=== PATIENT | female | born 1995 | race Caucasian/White ===

== ENCOUNTER 2018-12-15 06:00 | Inpatient (IN) ==
[2018-12-15] MEDS ORDERED: miSOPROStol 25 MCG TABLET PO PRN (06:18)
[2018-12-15] MEDS ORDERED: Naloxone 0.4 MG/ML INJ IVP PRN (06:18)
[2018-12-15] MEDS ORDERED: *HR* Nalbuphine 10 MG/ML AMPUL IVP PRN (06:18)
[2018-12-15] MEDS ORDERED: Metoclopramide 10 MG/2 ML VIAL IVP PRN (06:18)
[2018-12-15] MEDS ORDERED: Famotidine 20 MG/2 ML VIAL IVP PRN (06:18)
[2018-12-15] MEDS ORDERED: Ringers Solution, Lactated 1,000 ML IVC SCH (06:30)
[2018-12-15 06:52] LABS: Amphetamine Screen,Urine Negative ng/mL (Cutoff=1000); Barbiturate Screen,Urine Negative ng/mL (Cutoff=200); Basophils % 0.2 %; Eosinophils # 0.2 K/mcL (0.0-0.6); Eosinophils % 1.3 %; Hematocrit 35.9 % (35.3-44.9); Hemoglobin 12.1 g/dL (11.5-15.4); Immature Granulocytes % 0.4 % (0-4); Lymphocytes # 2.8 K/mcL (0.6-4.6); Lymphocytes % 21.6 %; Mean Corpuscular HGB Conc 33.7 g/dL (31.6-35.5); Mean Corpuscular Volume 92.1 fL (83.0-100.0); Monocytes % 7.8 %; Neutrophils # 8.8 K/mcL (1.6-8.9); Platelet Count 311 K/mcL (140-400); Red Cell Distribution Width 12.6 % (11.5-14.5); Segmented Neutrophils % 68.7 %; White Blood Count 12.8 K/mcL (4.3-11.1)
[2018-12-15 06:53] LABS: Benzodiazepines Screen,Urine Negative ng/mL (Cutoff=300); Cannabinoid Screen,Urine Negative ng/mL (Cutoff = 50); Cocaine Screen,Urine Negative ng/mL (Cutoff= 300); Opiate Screen,Urine Negative ng/mL (Cutoff=300); Phencyclidine Screen,Urine Negative ng/mL (Cutoff=25)
--- NOTE | 2018-12-15 08:14 | Anesthesia Evaluation PreOp ---
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 Other Medical History: Denies Any Significant HX Anesthesia History: No Prior Anesthetic Complications, Past Anesthesia (denies) Alcohol Use: none Drug use: none Medications and Allergies Vits96/Iron Fum/Folic [ Tablet] 1 each PO DAILY 12/15/18 [History] Allergy/AdvReac Type Severity Reaction Status Date / Time No Known Allergies Allergy Verified 12/15/18 06:26 Anesthesia Results - Labs 12/15/18 06:34 Anesthesia Exam - HEENT Pupil (Motor): Pupils equal Mallampati: II Teeth: Normal Oral Opening: Greater than 3 - AUTOMATION [employer] CONTROLS INSTRUCTOR LOC: Oriented [employer]OMATION [employer]OLS INSTRUCTOR Motor: Normal RUE, Normal LUE, Normal RLE, Normal LLE, Normal Face [employer]OLS INSTRUCTOR Sensory: Normal: RUE, LUE, RLE, LLE, Face - Cardiac Rhythm: Regular Murmur: None - Pulmonary Breath Sounds: bilateral Clear Respiratory Effort: Symmetrical Anesthesia Assess/Plan ASA Score: 2 Level of consciousness: Cooperative, Oriented Anesthetic Plan: General, Spinal, Epidural Monitoring Plan: Standard Monitors Recovery Plan: PACU
[2018-12-15] MEDS ORDERED: Epidural Premix (fent/bupiv) 110 ML EP SCH (08:15)
[2018-12-15] MEDS ORDERED: Penicillin G Potassium 5,000,000 UNIT in 0.9 % Sodium Chloride Mini Bag 100 ML IVPB ONE (12:39)
--- NOTE | 2018-12-15 12:39 | OB/GYN History & Physical ---
Date of Encounter: 12/15/18 Time of Encounter: 12:33 Assessment and Plan (1) 40 weeks gestation of Current visit: Yes Status: Acute admitted for IOL (2) History of group B Streptococcus (GBS) infection Current visit: Yes Status: Acute GBS prophylaxis History of Present Illness Chief complaint: Schedule IOL @ 40w4d HPI: Ms. Morrissey is a 23 year old female is a at 40w4d presented to labor and delivery for scheduled IOL. Patient denies any questions or concerns. Patient reports good movement with occasional contractions. Patient denies VB or LOF. Patient did have a bartholin gland drained that was positive for group B strep will treat for GBS prophylaxis. Blood type:O+ Rubella: Immune Hep B: nonreactive GBS: Positive with Bartholin's cyst culture Past Med Surg Social Fam HX - Past Medical History Source: patient Medical history: no medical history Psychiatric history: depression - Past Surgical History Surgical History: no surgical history - Social History Smoking Status: Current every day smoker Packs per day: 1/2 Smokeless Tobacco Status: No Alcohol use: none Drug use: none Occupational status: unemployed Current living situation: Home - Independent Activity Level: Independent ambulation Recent Out of Country Travel Within the Last 8 Weeks: No Exposure or Possible Exposure to Illness During Travel: No - Family History Mother Living Status: Still Living Obstetrical History - Pregnancies : 1 Para: 0 Term: 0 : 0 Ab's: 0 Livin Medications and Allergies Vits96/Iron Fum/Folic [ Tablet] 1 each PO DAILY 12/15/18 [History] Allergy/AdvReac Type Severity Reaction Status Date / Time No Known Allergies Allergy Verified 12/15/18 06:26 Review of System OB - Constitutional Constitutional ROS IM: no chills, no fever(s), no headache(s) - Cardiovascular Cardiovascular: no chest pain, no leg edema - Respiratory Respiratory: no cough, no dyspnea - Gastrointestinal Gastrointestinal: no abdominal pain, no constipation, no cramping, no heartburn, no nausea, no vomiting - Genitourinary Genitourinary: no abnormal vaginal bleeding, no dysuria, no flank pain, no urinary hesitancy, no urinary urgency, no vaginal discharge, no vaginal odor, no vaginal pruritis Exam - Constitutional Constitutional: well developed, well nourished, no acute distress, average body habitus - HEENT HEENT: Normocephaly, Mucus Membranes Moist - Neck Neck exam: full ROM, supple - Lungs Respiratory exam: CTAB - Cardiovascular Cardiovascular exam: RRR, +S1, +S2 - Abdomen Abdomen: Present: bowel sounds normal, gravid, non tender - Extremities Extremities exam: full ROM, normal capillary refill, normal inspection Deep Tendon Reflex Grade: 2+ Normal - Cervix Dilation: 2 Effacement: 80 Station: -1 - Uterus Uterus exam: Present: normal size, normal contour - Anus/Rectum Anus/Rectum: Present: normal perianal skin - Comments Comments: FHR 120 bpm moderate variability +15x15 accels no decels noted. Contractions 2.5-3 min apart. Cat. 1 tracing Results Result Diagrams: 12/15/18 06:34 Abnormal lab results WBC 12.8 K/mcL (4.3-11.1) H 12/15/18 06:34 All other labs normal. - VTE Reasons for not Prescribing Prophylaxis: Treatment not Indicated - Low risk for VTE
[2018-12-15] MEDS ORDERED: Oxytocin 20 units/ LR 1000 mL 20 UNIT/1,000 ML BAG IVC ONE (12:40)
--- NOTE | 2018-12-15 15:05 | Anesthesia Procedures ---
Date of Encounter: 12/15/18 Time of Encounter: 14:39 Procedures: Anesthesia - Epidural/Spinal Patient ID/Chart reviewed: Yes Patient examined: Yes OB Eval: Gestational age: term OB Eval: : 1 OB Eval: Contractions: Non-stressed pattern Consent Obtained: Yes Supplemental Oxygen: None/Room Air Site Prep: Aseptic Technique, Sterile prep and drape, 0.5% Chlorhexidine/Alcohol Patient position: upright Local Anesthetic: Lidocaine 1% Amount of Local Anesthetic used: 2 Touhy Needle Gauge: 18 Touhy Needle Depth (cm): 7 Catheter Depth at Skin (cm): 12 Test Dose (1.5% Lido + Epi): Volume given (mls): 3 Test Dose Result: Negative Loading Dose: Other: 10ml from solution Loading Dose Administered: Thru Catheter Infusion Med: 0.125% Bupivacaine w/ 2 mcg/ml Fentanyl Infusion Rate (mls/hr): [address]: Tegaderm, Tape Interspace Used: L3-L4 Loss of Resistance (YAMINI): Yes (saline) Blood: No CSF: Yes (25g purposful) Paresthesia: No Procedure: vss though out procedure, FHR per team.
[2018-12-15] MEDS ORDERED: Penicillin G Potassium 2,500,000 UNIT in 0.9 % Sodium Chloride 100 ML IVPB SCH (17:00)
[2018-12-15] MEDS ORDERED: Ondansetron 4 MG/2 ML VIAL IM ONE (17:26)
--- NOTE | 2018-12-15 21:51 | OB/GYN Procedure Note ---
Delivery - Delivery Date: 12/15/18 Provider: Kofi Gupta Intrapartum events: none Delivery induction: AROM, oxytocin, ortiz, misoprostol Delivery augmentation: rupture of membranes Delivery monitor: external FHT, external uterine Anesthesia: epidural Quantitated Blood Loss: 300 - Infant (s) Infant A Infant Delivery Date: 12/15/18 Infant Delivery Time: 21:31 Presentation: vertex Position: OA Gender: Female Viability: Viable Pounds: 6 Ounces: 2 Weight Gram: 2.78 kg at 1 minute: 8 at 5 mins: 9 Shoulder Dystocia: not encountered Specimens collected: cord blood Placenta: spontaneous Cord: nuchal cord, 3 umbilical vessels - Repair Episiotomy: none Laceration Description: Perineal - 2nd Degree - Complications Delivery complications: none Delivery comments: This patient progressed to complete and pushing. She had a spontaneous vaginal delivery of a female infant over an intact perineum. Assessment perineum easily. There was a tight nuchal cord which was delivered through. The rest the infant delivered without difficulty. cried immediately upon delivery. The cord was clamped and cut after 1 minute. Infant was passed to nursing in attendance. Cord bloods obtained. The placenta was then delivered spontaneously intact. There are no cervical, vaginal, periurethral lacerations noted. There was a second-degree perineal laceration which was noted and repaired with 3-0 Vicryl suture. Patient delivered a female weight was 6 lbs. 2 oz. Apgars are 2780 g. Estimated blood loss 30 mL. - Disposition Mom disposition: stable in LDR disposition: stable in LDR
[2018-12-16] MEDS ORDERED: Oxytocin 20 units/ LR 1000 mL 20 UNIT/1,000 ML BAG IVC ONE (00:02)
[2018-12-16] MEDS ORDERED: Measles/Mumps/Rubella Vacc 0.5 ML VIAL SQ PRN (00:26)
[2018-12-16] MEDS ORDERED: Oxytocin 20 units/ LR 1000 mL 20 UNIT/1,000 ML BAG IVC SCH (00:26)
[2018-12-16] MEDS ORDERED: Acetaminophen 325 MG TABLET PO PRN (00:26)
[2018-12-16 07:29] LABS: Basophils % 0.2 %; Eosinophils # 0.2 K/mcL (0.0-0.6); Eosinophils % 1.2 %; Hematocrit 31.9 % (35.3-44.9); Immature Granulocytes % 0.4 % (0-4); Lymphocytes % 14.1 %; Mean Corpuscular HGB Conc 32.9 g/dL (31.6-35.5); Mean Corpuscular Hemoglobin 30.9 pg (28.0-33.3); Mean Corpuscular Volume 93.8 fL (83.0-100.0); Mean Platelet Volume 10.4 fL (9.4-12.4); Monocytes # 1.1 K/mcL (0.0-1.3); Monocytes % 7.5 %; Neutrophils # 10.8 K/mcL (1.6-8.9); Platelet Count 243 K/mcL (140-400); Red Cell Distribution Width 12.5 % (11.5-14.5); Segmented Neutrophils % 76.6 %
[2018-12-16 07:42] LABS: Hemoglobin 10.5 g/dL (11.5-15.4)
[2018-12-16] MEDS ORDERED: Prenatal Vit/FA 1 EACH TABLET PO SCH (09:00)
--- NOTE | 2018-12-16 10:37 | Discharge Summary ---
Date of Encounter: 12/16/18 Time of Encounter: 10:34 - Discharge Diagnosis (1) Vaginal delivery Priority: Primary Status: Acute Comments: Feeling well Tolerating regular diet Pain well-controlled with by mouth pain meds Ambulating independently Voiding independently Lochia light Passing flatus, no BM yet Vital signs stable Discharge home today (2) Acute blood loss anemia Priority: Secondary Status: Acute Comments: Continue iron supplementation for 2 weeks - Discharge Medications Prescriptions: New Docusate [Colace] 100 mg PO BID #30 capsule Ferrous Sulfate 325 mg PO DAILY #14 tablet Ibuprofen [Motrin] 600 mg PO Q6HR PRN #30 tab PRN Reason: Pain Acetaminophen [Tylenol] 650 mg PO Q6HR PRN tablet PRN Reason: Mild Pain Continued Vits96/Iron Fum/Folic [ Tablet] 1 each PO DAILY Home Medications: Vits96/Iron Fum/Folic [ Tablet] 1 each PO DAILY 12/15/18 [History] Acetaminophen [Tylenol] 650 mg PO Q6HR PRN tablet 12/16/18 [Rx] Docusate [Colace] 100 mg PO BID #30 capsule 12/16/18 [Rx] Ferrous Sulfate 325 mg PO DAILY #14 tablet 12/16/18 [Rx] Ibuprofen [Motrin] 600 mg PO Q6HR PRN #30 tab 12/16/18 [Rx] Allergies/Adverse Reactions: Allergy/AdvReac Type Severity Reaction Status Date / Time No Known Allergies Allergy Verified 12/15/18 06:26 Data Procedures and tests throughout hospitalization: Laboratory Tests 12/15/18 12/15/18 12/16/18 06:34 06:34 06:39 WBC 12.8 H 14.0 H RBC 3.90 3.40 L Hgb 12.1 10.5 L D Hct 35.9 31.9 L MCV 92.1 93.8 MCH 31.0 30.9 MCHC 33.7 32.9 RDW 12.6 12.5 Plt Count 311 243 MPV 10.0 10.4 Immature Gran % 0.4 0.4 Seg Neutrophils % 68.7 76.6 Lymphocytes % 21.6 14.1 Monocytes % 7.8 7.5 Eosinophils % 1.3 1.2 Basophils % 0.2 0.2 Neutrophils # 8.8 10.8 H Lymphocytes # 2.8 2.0 Monocytes # 1.0 1.1 Eosinophils # 0.2 0.2 Basophils # 0.0 0.0 Urine Opiates Screen Negative Ur Buprenorphine Scrn Negative Ur Barbiturates Screen Negative Ur Phencyclidine Scrn Negative Ur Amphetamines Screen Negative U Benzodiazepines Scrn Negative Urine Cocaine Screen Negative U Marijuana (THC) Screen Negative Ur Drug Screen Interp See Below Labs on day of discharge: Labs from last 24 hours 12/16/18 06:39 WBC 14.0 H RBC 3.40 L Hgb 10.5 L D Hct 31.9 L MCV 93.8 MCH 30.9 MCHC 32.9 RDW 12.5 Plt Count 243 MPV 10.4 Immature Gran % 0.4 Seg Neutrophils % 76.6 Lymphocytes % 14.1 Monocytes % 7.5 Eosinophils % 1.2 Basophils % 0.2 Neutrophils # 10.8 H Lymphocytes # 2.0 Monocytes # 1.1 Eosinophils # 0.2 Basophils # 0.0 Date of admission: 12/15/18 06:14 Primary care physician: PCP NONE Consults: 12/16/18 00:26 Consult to Threshing Department Supervisor [CONS] Routine Comment: Vaginal delivery, consult needed Discharging clinician: Sharon Martin Anticipated date of discharge: 12/16/18 - Patient Status Disposition: Home, Self-Care Condition: Good Functional capacity at discharge: independent ambulation Overall status at discharge: patient is progressing back to baseline - Discharge Instructions Follow Up With: NONE,PCP [Primary Care Provider] - Kofi Gupta MD [Partnered Physician] - - Diet and Activity Activity: increase activity as tolerated Diet: regular diet Hospital Course Reason for admission: induction of labor, IUP at term Delivery: Episiotomy: none Laceration: none Other procedures: none complications: none Discharge diagnosis: IUP at term delivered baby: male Time Attestation: Total time spent providing and/or coordinating discharge services: Time Spent: Less than 30 minutes Exam - Constitutional Vitals: Temp Pulse Resp BP Pulse Ox 97.8 F 94 16 127/85 98 12/16/18 07:45 12/16/18 07:45 12/16/18 07:45 12/16/18 07:45 12/16/18 07:45 General appearance IM: A&O X 3, pleasant, answers questions appropriately - Respiratory Respiratory exam: Present: CTAB - Cardiovascular Cardiovascular exam IM: Present: RRR, +S1, +S2 - GI/Abdominal GI/Abdominal exam IM: normal bowel sounds, no peritoneal signs - Rectal Rectal exam: deferred - Uterine Tone: Firm Uterus Position: 2 Fingers Below Umbilicus, Midline - Extremities Exam Extremities exam IM: Present: normal capillary refill, normal inspection, radial pulses palpable and symmetrical - Neurological Exam Neurological exam: alert, CN II-XII intact, normal gait, oriented X3, reflexes normal, no focal deficits, strengths equal and symetr throughout - Psychiatric Additional comments: Signs and symptoms of depression discussed with patient and she verbalizes understanding of when to seek help
[2018-12-16 20:56] VITALS: BP 123/81
== END 2018-12-16 22:40 | disposition home or self-care (01) | DRG 560 ==
LOC: 1NENULAB 06:14 → 1NENUOBS 12-16 01:31
PROVIDERS: ADMIT Obstetrics & Gynecology; ATTEND Obstetrics & Gynecology

== ENCOUNTER 2021-03-06 14:38 | Inpatient (IN) ==
[~2021-03-06 14:38] MED LIST: *HR* Nalbuphine 10 MG/ML AMPUL IV PRN; Azithromycin 500 MG in 0.9 % Sodium Chloride 250 ML IVPB PRN; Famotidine 20 MG/2 ML VIAL IVP PRN; Metoclopramide 10 MG/2 ML VIAL IVP PRN; Naloxone 0.4 MG/ML INJ IVP PRN; Ondansetron 4 MG/2 ML VIAL IVP PRN
[2021-03-06] MEDS ORDERED: Ringers Solution, Lactated 1,000 ML ONE (14:43)
[2021-03-06] MEDS ORDERED: Ringers Solution, Lactated 1,000 ML IVC SCH (14:45)
[2021-03-06 15:08] LABS: Basophils % 0.3 %; Eosinophils # 0.1 K/mcL (0.0-0.6); Eosinophils % 0.7 %; Hematocrit 37.8 % (35.3-44.9); Hemoglobin 12.6 g/dL (11.5-15.4); Immature Granulocytes % 0.4 % (0-4); Lymphocytes # 2.2 K/mcL (0.6-4.6); Lymphocytes % 13.9 %; Mean Corpuscular HGB Conc 33.3 g/dL (31.6-35.5); Mean Corpuscular Volume 92.9 fL (83.0-100.0); Mean Platelet Volume 10.6 fL (9.4-12.4); Monocytes # 0.9 K/mcL (0.0-1.3); Monocytes % 5.9 %; Neutrophils # 12.4 K/mcL (1.6-8.9); Platelet Count 234 K/mcL (140-400); Red Blood Count 4.07 M/mcL (3.82-4.97); Red Cell Distribution Width 12.8 % (11.5-14.5); Segmented Neutrophils % 78.8 %; White Blood Count 15.7 K/mcL (4.3-11.1)
[2021-03-06] MEDS ORDERED: EPHEDrine 50 MG/ML VIAL IVP PRN (15:20)
[2021-03-06] MEDS ORDERED: Ropivacaine/PF 0.2% 20 ML VIAL EP ONE (15:20)
[2021-03-06] MEDS ORDERED: Ondansetron 4 MG/2 ML VIAL IVP PRN (15:20)
[2021-03-06] MEDS ORDERED: *HR* FentaNYL (PF) 100 MCG/2 ML VIAL EP ONE (15:20)
[2021-03-06] MEDS ORDERED: Naloxone 0.4 MG/ML INJ IVP PRN (15:20)
[2021-03-06 15:23] LABS: Amphetamine Screen,Urine Negative ng/mL (Cutoff=1000); Barbiturate Screen,Urine Negative ng/mL (Cutoff=200); Benzodiazepines Screen,Urine Negative ng/mL (Cutoff=200); Cannabinoid Screen,Urine Negative ng/mL (Cutoff = 50); Cocaine Screen,Urine Negative ng/mL (Cutoff= 300); Opiate Screen,Urine Negative ng/mL (Cutoff=300); Phencyclidine Screen,Urine Negative ng/mL (Cutoff=25)
[2021-03-06] MEDS ORDERED: Epidural Premix (fent/bupiv) 110 ML EP ONE (15:27)
[2021-03-06] MEDS ORDERED: Ropivacaine/PF 0.2% 20 ML VIAL ONE (15:29)
[2021-03-06] MEDS ORDERED: Epidural Premix (fent/bupiv) 110 ML EP SCH (15:30)
[2021-03-06 15:47] LABS: Influenza A PCR Negative (Negative); Influenza B PCR Negative (Negative); Resp. Syncytial Virus PCR Negative (Negative)
[2021-03-06 15:53] LABS: SARS-CoV-2 by PCR (In House) Negative (Negative)
[2021-03-06] MEDS ORDERED: Oxytocin 20 units/ LR 1000 mL 20 UNIT/1,000 ML BAG IVC ONE ×2 (18:06→18:42)
[2021-03-06] MEDS ORDERED: Measles/Mumps/Rubella Vacc 0.5 ML VIAL SQ PRN (18:42)
[2021-03-06] MEDS ORDERED: Ondansetron ODT 4 MG TAB.RAPDIS SL PRN (18:42)
[2021-03-06] MEDS ORDERED: Rho Immune Globulin 1,500 UNIT SYRINGE IM PRN (18:42)
[2021-03-06] MEDS ORDERED: Benzocaine/Menthol 56 GM AEROSOL SPRAY TP PRN (18:42)
[2021-03-06] MEDS ORDERED: Lanolin 7 G OINT...G. TP PRN (18:42)
[2021-03-06] MEDS ORDERED: Oxytocin 20 units/ LR 1000 mL 20 UNIT/1,000 ML BAG IVC SCH (18:45)
[2021-03-06] MEDS: Ibuprofen 600 MG TABLET PO SCH (22:37)
[2021-03-06] MEDS: Acetaminophen 325 MG TABLET PO SCH (22:37)
[2021-03-07 03:45] VITALS: O2SAT 98
[2021-03-07 03:57] LABS: Basophils % 0.2 %; Eosinophils # 0.2 K/mcL (0.0-0.6); Eosinophils % 1.2 %; Hematocrit 32.7 % (35.3-44.9); Immature Granulocytes % 0.4 % (0-4); Lymphocytes # 3.1 K/mcL (0.6-4.6); Mean Corpuscular HGB Conc 33.6 g/dL (31.6-35.5); Mean Corpuscular Hemoglobin 31.3 pg (28.0-33.3); Mean Corpuscular Volume 92.9 fL (83.0-100.0); Mean Platelet Volume 10.9 fL (9.4-12.4); Monocytes % 7.2 %; Neutrophils # 9.8 K/mcL (1.6-8.9); Platelet Count 177 K/mcL (140-400); Red Blood Count 3.52 M/mcL (3.82-4.97); Red Cell Distribution Width 12.7 % (11.5-14.5); White Blood Count 14.2 K/mcL (4.3-11.1)
[2021-03-07] MEDS ORDERED: NON-FORMULARY MEDICATION 1 EACH EACH (Prenatal Vits96/Iron Fum/Folic [Prenatal Tablet] 1 E PO SCH (09:00)
[2021-03-07] MEDS ORDERED: Prenatal Vit/FA 1 EACH TABLET PO SCH (09:00)
[2021-03-07] MEDS: Ibuprofen 600 MG TABLET PO SCH (10:21)
[2021-03-07 14:40] VITALS: BP 126/78; PULSE 96; TEMP 98.1
[2021-03-07] MEDS: Acetaminophen 325 MG TABLET PO SCH (14:51)
== END 2021-03-07 18:18 | disposition home or self-care (01) | DRG 560 ==
LOC: 1NENULAB → 1NENUOBS 20:59
PROVIDERS: ADMIT Student in an Organized Health Care Education/Training Program; ATTEND Student in an Organized Health Care Education/Training Program